=== PATIENT | female | born 1960 | race Hispanic/Latino ===

== ENCOUNTER 2024-07-08 18:30 | Emergency (ER) | payer OTHER, MEDICARE ==
[2024-07-08] VITALS (7 sets, daily range): BP systolic 133–170; BP diastolic 84–103
[~2024-07-08] VITALS: Ht 160 cm; Wt 88.6 kg
[~2024-07-08 18:30] MED LIST: AMLODIPINE5 MG PO; BENAZEPRIL HCL40 MG PO
[2024-07-08] MEDS ORDERED: NAPROXEN 250 MG/TAB PO ONE (19:05)
[2024-07-08] MEDS ORDERED: METHOCARBAMOL 500 MG/TAB PO ONE (19:05)
[2024-07-08] MEDS ORDERED: cloNIDine HCL 0.1 MG/TAB PO ONE (19:05)
[2024-07-08] MEDS ORDERED: NAPROXEN500 MG PO (20:09)
[2024-07-08] MEDS ORDERED: METHOCARBAMOL500 MG PO (20:09)
== END 2024-07-08 20:42 | disposition home or self-care (01) | DRG 552 ==
LOC: ED 18:30
DX: S16.1XXA Strain of muscle, fascia and tendon at neck level, initial encounter (principal); S30.1XXA Contusion of abdominal wall, initial encounter; V49.40XA Driver injured in collision with unspecified motor vehicles in traffic accident, initial encounter; I10 Essential (primary) hypertension; E78.5 Hyperlipidemia, unspecified